=== PATIENT | male | born 1960 | race African-American/Black ===

== ENCOUNTER 2017-09-26 10:29 | Inpatient (IN) | payer SELFPAY ==
[~2017-09-26] VITALS: Ht 185.4 cm; Wt 90.7 kg
[2017-09-26] MEDS ORDERED: ONDANSETRON HCL 4MG/2ML VIAL IV STA (11:02)
[2017-09-26] MEDS ORDERED: MORPHINE SULFATE 4 MG/ML CPJ (NOT FOR IM USE) IV STA (11:02)
[2017-09-26] MEDS ORDERED: SODIUM CHLORIDE 0.9% 1,000 ML IV ONE (11:02)
[2017-09-26 11:27] LABS: MEAN CORPUSCULAR HEMOGLOBIN 25.3 pg (28.0-32.0); MEAN CORPUSCULAR VOLUME 79.1 fL (80.0-94.0); MEAN PLATELET VOLUME 6.8 fl (7.4-10.4); PLATELET 416 x1000/uL (130-400); RED BLOOD CELL COUNT 2.54 mill/uL (4.7-6.1); RED CELL DISTRIBUTION WIDTH 18.6 % (11.6-14.6)
[2017-09-26 11:34] LABS: CHLORIDE 109 mEq/L (98-107)
[2017-09-26 11:35] LABS: INR 1.2; PROTHROMBIN TIME 12.3 sec (9.4-11.6)
[2017-09-26 11:37] LABS: HEMOGLOBIN. 6.4 g/dL (14.0-18.0)
[2017-09-26 11:38] LABS: HEMATOCRIT. 20.1 % (42.0-52.0)
[2017-09-26 11:39] LABS: ETHANOL BLOOD < 10 mg/dL
[2017-09-26 12:18] LABS: PLATELET ESTIMATE SLIGHTLY INCREASED
[2017-09-26] MEDS ORDERED: GUAIFENESIN 200MG/10ML SUGAR FREE UDC PO PRN (15:15)
[2017-09-26] MEDS ORDERED: NA PHOS,M-B/NA PHOS,DI-BA ENEMA 118ML PR PRN (15:15)
[2017-09-26] MEDS ORDERED: DIPHENHYDRAMINE 50MG/ML VIAL IV PRN (15:15)
[2017-09-26] MEDS ORDERED: DOCUSATE SODIUM 100MG CAPSULE PO PRN (15:15)
[2017-09-26] MEDS ORDERED: MAGNESIUM/ALUMINUM HYDROXIDE/SIMETHICONE 30ML UDC PO PRN (15:15)
[2017-09-26] MEDS ORDERED: ACETAMINOPHEN 325MG TABLET PO PRN (15:15)
[2017-09-26] MEDS ORDERED: CLONIDINE 0.1MG TABLET PO PRN (15:15)
[2017-09-26 16:07] LABS: TOTAL IRON BINDING CAPACITY 115 ug/dL (250-450)
[2017-09-26 16:35] LABS: FOLIC ACID (FOLATE) SERUM 13.1 ng/mL (>5.38)
[2017-09-26] MEDS ORDERED: IPRATROPIUM/ALBUTEROL 0.5-3(2.5)MG/3ML NEB INH PRN (21:00)
[2017-09-26] MEDS ORDERED: LORAZEPAM 0.5MG TABLET PO PRN (21:00)
[2017-09-26] MEDS ORDERED: ZOLPIDEM TARTRATE 5MG TABLET PO PRN (21:00)
[2017-09-26] MEDS ORDERED: ONDANSETRON HCL 4MG/2ML VIAL IV PRN (21:13)
[2017-09-26] MEDS ORDERED: NITROGLYCERIN 0.4MG TABLET SL SL PRN (21:14)
[2017-09-26 21:40] VITALS: BP 133/82
[2017-09-26] MEDS: SUCRALFATE 1 G/10 ML UDC PO SCH (22:48)
[2017-09-26] MEDS: METOPROLOL TARTRATE 25MG TABLET PO SCH (22:48)
[2017-09-26] MEDS: KETOROLAC 15MG/ML VIAL IV PRN (22:50)
[2017-09-26 23:09] LABS: HEMOGLOBIN 6.9 g/dL (14.0-18.0)
[2017-09-26 23:10] LABS: HEMATOCRIT 20.5 % (42.0-52.0)
[2017-09-26 23:45] VITALS: BP 129/73
[2017-09-27] VITALS (11 sets, daily range): BP systolic 114–141; BP diastolic 70–83
[2017-09-27 06:14] LABS: CLARITY URINE CLEAR (CLEAR); COLOR URINE YELLOW (YELLOW); KETONES URINE NEGATIVE (NEGATIVE); LEUKOCYTE ESTERASE URINE NEGATIVE (NEGATIVE); NITRITE URINE POSITIVE (NEGATIVE); OCCULT BLOOD URINE 1+ (NEGATIVE); PH URINE 5.5 (4.5-8.0); PROTEIN URINE 2+ (NEGATIVE); SPECIFIC GRAVITY URINE 1.019 (1.005-1.030)
[2017-09-27 07:21] LABS: *BARBITURATES SCREEN URINE NEGATIVE (NEGATIVE); *BENZODIAZEPINES SCREEN URINE NEGATIVE (NEGATIVE); *COCAINE SCREEN URINE PRESUMTIVE POSITIVE (NEGATIVE); CANNABINOID URINE SCREEN NEGATIVE (NEGATIVE); METHADONE URINE SCREEN NEGATIVE (NEGATIVE); OPIATES URINE SCREEN PRESUMTIVE POSITIVE (NEGATIVE)
[2017-09-27 07:22] LABS: *AMPHETAMINES SCREEN URINE NEGATIVE (NEGATIVE); PHENCYCLIDINE URINE SCREEN NEGATIVE (NEGATIVE)
[2017-09-27] MEDS: FAMOTIDINE 20MG/2ML VIAL IV SCH ×2 (08:45→21:02)
[2017-09-27] MEDS: SUCRALFATE 1 G/10 ML UDC PO SCH ×4 (08:45→21:02)
[2017-09-27] MEDS: METOPROLOL TARTRATE 25MG TABLET PO SCH ×2 (08:46→21:02)
[2017-09-27] MEDS: KETOROLAC 15MG/ML VIAL IV PRN ×2 (10:24→17:26)
[2017-09-27 13:18] LABS: HEMATOCRIT. 22.9 % (42.0-52.0); HEMOGLOBIN. 7.8 g/dL (14.0-18.0); MEAN CORPUSCULAR HEMOGLOBIN 27.5 pg (28.0-32.0); MEAN CORPUSCULAR VOLUME 80.7 fL (80.0-94.0); MEAN PLATELET VOLUME 7.1 fl (7.4-10.4); PLATELET 338 x1000/uL (130-400); RED BLOOD CELL COUNT 2.84 mill/uL (4.7-6.1); RED CELL DISTRIBUTION WIDTH 17.8 % (11.6-14.6)
[2017-09-27 14:56] LABS: PLATELET ESTIMATE NORMAL
[2017-09-27 16:31] LABS: CHLORIDE 107 mEq/L (98-107)
[2017-09-27] MEDS ORDERED: FILGRASTIM 300 MCG/ML VIAL SUBCUT SCH (21:00)
[2017-09-27] MEDS ORDERED: FILGRASTIM-TBO 300 MCG/0.5 ML SYRINGE SQ SCH (22:00)
[2017-09-28] VITALS (7 sets, daily range): BP systolic 116–147; BP diastolic 68–86
[2017-09-28] MEDS: KETOROLAC 15MG/ML VIAL IV PRN ×4 (00:05→16:53)
[2017-09-28] MEDS: SUCRALFATE 1 G/10 ML UDC PO SCH ×3 (08:27→16:52)
[2017-09-28] MEDS: FAMOTIDINE 20MG/2ML VIAL IV SCH (08:28)
[2017-09-28] MEDS: METOPROLOL TARTRATE 25MG TABLET PO SCH (08:28)
[2017-09-28 13:00] LABS: HEMATOCRIT. 23.8 % (42.0-52.0); HEMOGLOBIN. 7.9 g/dL (14.0-18.0); MEAN CORPUSCULAR HEMOGLOBIN 26.7 pg (28.0-32.0); MEAN PLATELET VOLUME 7.1 fl (7.4-10.4); PLATELET 374 x1000/uL (130-400); RED BLOOD CELL COUNT 2.94 mill/uL (4.7-6.1); RED CELL DISTRIBUTION WIDTH 17.6 % (11.6-14.6)
[2017-09-28 13:46] LABS: PLATELET ESTIMATE NORMAL
[2017-09-30 13:07] LABS: PARVOVIRUS B19 HUMAN IGG 7.7 index (0.0-0.8); PARVOVIRUS B19 HUMAN IGM 0.1 index (0.0-0.8)
== END 2017-09-28 17:45 | disposition home or self-care (01) | DRG 660 ==
LOC: ER 10:29 → 7WST 12:38 → ENRESERV 19:30
PROVIDERS: ADMIT Internal Medicine; ATTEND Internal Medicine
PROC: 30233N1 Transfusion of Nonautologous Red Blood Cells into Peripheral Vein, Percutaneous Approach (ICD-10-PCS; principal; 2017-09-26)
DX: D61.818 Other pancytopenia (principal); E43 Unspecified severe protein-calorie malnutrition; N39.0 Urinary tract infection, site not specified; Z87.11 Personal history of peptic ulcer disease; Z68.26 Body mass index [BMI] 26.0-26.9, adult
CPT/HCPCS: 36415; 76705; 80053; 80305; 81003; 82607; 82746; 83540; 83550; 83605; 83690; 85014; 85018; 85025; 85044; 85610; 86703; 86747; 86850; 86900; 86920; 87040; 87086; 93970; 96361; 96374; 96375; 99285; G0482; J1200; J1442; J1885; J2270; J2405; J3490; J7030; J7050; P9016